=== PATIENT | female | born 2000 | race Caucasian/White ===

== ENCOUNTER 2022-02-02 12:51 | Outpatient (CLI) | payer BC, SELFPAY ==
--- NOTE | 2022-02-02 13:00 | CRLHL7_ITS ---
For Patients: As a result of the Century Cures Act, medical imaging exams and procedure reports are released immediately into your electronic medical record. You may view this report before your referring provider. If you have questions, please contact your health care provider. INDICATION: First trimester scan, establish dates. COMPARISON: None. TECHNIQUE: Real-time seals-scale imaging of the pelvis was performed. FINDINGS: Sonographic imaging demonstrates a single living intrauterine gestation. The embryo demonstrates a regular cardiac rate measuring 159 beats per minute. The embryo`s crown-rump length measurement of 1.4 cm corresponds to a gestational age of 7 weeks 5 days with a sonographic due date of 09/16/2022. There is a normal-appearing yolk sac. There are no gross abnormalities noted within the embryo at this early state of development. The gestational sac has a normal appearance. There is a 1.7 x 0.2 x 1.5 cm perigestational hemorrhage. The amount of fluid within the sac appears appropriate for gestational age. The cervix is closed. Incidental cyst noted in the decidual reaction measuring 7 x 5 x 5 millimeters. The ovaries are of normal size. Corpus luteal cyst left ovary measuring 1.9 x 1.5 x 1.9 cm. There are no suspicious fluid collections noted in the cul-de-sac. IMPRESSION: A single living intrauterine with sonographic gestational age 7 weeks 5 days and sonographic due date 09/16/2022. Inferior subchorionic hemorrhage measuring 1.7 x 0.2 x 1.5 cm. Dictated by Chencho Preciado MD @ 02/03/2022 9:23:44 AM (Electronically Signed)
== END 2022-02-02 12:52 | disposition home or self-care (01) ==
LOC: US 12:52
PROVIDERS: PCP Advanced Practice Midwife; Visit Provider Advanced Practice Midwife
DX: Z34.91 Encounter for supervision of normal pregnancy, unspecified, first trimester (principal); O20.9 Hemorrhage in early pregnancy, unspecified; Z3A.01 Less than 8 weeks gestation of pregnancy
CPT/HCPCS: 76801

== ENCOUNTER 2022-02-16 14:34 | Outpatient (CLI) | payer BC, SELFPAY ==
[2022-02-16 18:05] LABS: Hepatitis B Surface Antigen* Negative (Negative)
[2022-02-16 18:14] LABS: HIV 1/2/P24 Combo Screen* Negative (Negative)
[2022-02-16 18:21] LABS: Hepatitis C Virus Antibody* Negative (Negative)
[2022-02-18 17:16] LABS: Rapid Plasma Reagin (RPR) Non Reactive (Non Reactive)
[2022-02-18 20:41] LABS: Rubella Antibody IgG 30.5 IU/mL; Varicella-Zoster Virus Ab, IgG 802.9 IV
== END 2022-02-16 14:35 | disposition home or self-care (01) ==
PROVIDERS: PCP Advanced Practice Midwife; Visit Provider Advanced Practice Midwife
DX: Z34.80 Encounter for supervision of other normal pregnancy, unspecified trimester (principal)
CPT/HCPCS: 86592; 86703; 86762; 86787; 86803; 86850; 86900; 86901; 87086; 87340

== ENCOUNTER 2022-05-04 09:02 | Outpatient (CLI) | payer BC, SELFPAY ==
--- NOTE | 2022-05-04 09:15 | CRLHL7_ITS ---
For Patients: As a result of the Century Cures Act, medical imaging exams and procedure reports are released immediately into your electronic medical record. You may view this report before your referring provider. If you have questions, please contact your health care provider. INDICATION: Evaluate anatomy. COMPARISON: 02/02/2022 TECHNIQUE: Real time seals scale imaging of the fetus was performed as well as color Doppler analysis of the umbilical vessels. FINDINGS: Sonographic imaging demonstrates a single living intrauterine gestation. Fetus demonstrates a regular cardiac rate of 146 beats per minute. Fetus has a breech position. The placenta lies anteriorly without evidence of placenta previa. The edge of the placenta is located 4.1 cm from the internal cervical os. Amniotic fluid volume appears normal. Single deepest vertical pocket: 4.3 cm. The cervix is closed and measures 4.1 cm in length. The composite ultrasound gestational age is calculated at 20 weeks 5 days with an estimated sonographic due date of 09/16/2022. The estimated weight is 379 grams which lies at the 50th %. The following biometric measurements were obtained: Biparietal diameter: 4.7 cm/20 weeks 2 days 33rd% Head circumference: 18.0 cm/20 weeks 3 days 27th% Abdominal circumference: 15.9 cm/21 weeks 0 days 55th% Femur length: 3.4 cm/20 weeks 5 days 40th% The HC/AC ratio measures: 1.13 range (1.06-1.25) On anatomic survey, there is a normal appearance of the cerebral ventricles, cavum septi pellucidi, cisterna magna and cerebellum. The nose, lips, and facial profile appear normal. The cervical, thoracic and lumbar spine are well visualized and appear normal. There is a normal four-chamber heart view and the left and right ventricular outflow tracts appear normal. The diaphragm and stomach appear normal. The kidneys and bladder also appear normal. There is a normal three-vessel cord and cord insertion site. The four extremities appear normal. IMPRESSION: Normal OB ultrasound exam with concordance of clinical and sonographic dating. No intrinsic abnormalities noted on anatomic survey. Dictated by Chencho Preciado MD @ 05/04/2022 11:57:19 AM (Electronically Signed)
== END 2022-05-04 09:03 | disposition home or self-care (01) ==
LOC: US 09:03
PROVIDERS: Visit Provider Advanced Practice Midwife
DX: Z34.92 Encounter for supervision of normal pregnancy, unspecified, second trimester (principal); Z3A.20 20 weeks gestation of pregnancy
CPT/HCPCS: 76805

== ENCOUNTER 2022-06-29 09:08 | Outpatient (CLI) | payer BC, SELFPAY | END 2022-06-29 09:09 | disposition home or self-care (01) | LOC: NFLDREF 07-01 11:04 | PROVIDERS: Visit Provider Advanced Practice Midwife | DX: Z34.93 Encounter for supervision of normal pregnancy, unspecified, third trimester (principal) | CPT/HCPCS: 86592 ==

== ENCOUNTER 2022-09-07 17:55 | Outpatient (CLI) | payer BC, SELFPAY ==
[2022-09-07 18:17] VITALS: BP 124/82; PULSE 96; RESP 16; TEMP 37; O2SAT 98
[2022-09-07 18:18] VITALS: BP 124/82; PULSE 90; PULSE 96; O2SAT 98
[2022-09-07 18:53] LABS: Amnisure Rom* Negative
--- NOTE | 2022-09-07 20:55 | PC.OBNST ---
NST Note NST Note Start: 09/07/22 17:58 Freq: ONCE Status: Active Protocol: Document 09/07/22 20:54 FARHAN (Rec: 09/07/22 20:55 FARHAN [id number]) NST Note 3 Para (# of births) 1 EDC 09/16/22 Gestational Age In Weeks & Days 38 Weeks & 5 Days Patient Presented with Complaint(s) of Contractions/cramping,Leaking fluid Reactive Yes Appropriate for Gestational Age Yes ZOHAIB Hill RN Date 09/07/22 Reactive Yes Appropriate for Gestational Age Yes ZOHAIB Borden RN Date 09/07/22 OB NST charge Yes Complete NST Note via Write Note Yes The provider's electronic signature indicates the NST is reactive/appropriate for gestational age. *Note to provider: If an addendum is required, open the patient's chart and click on the note under the Nurse/Allied Health tab.
== END 2022-09-07 20:51 | disposition home or self-care (01) ==
LOC: OB OUT 17:55 → OB 17:56
PROVIDERS: Visit Provider Advanced Practice Midwife
DX: O47.1 False labor at or after 37 completed weeks of gestation (principal); Z3A.38 38 weeks gestation of pregnancy
CPT/HCPCS: 59025; 84112; 99213

== ENCOUNTER 2022-09-08 22:26 | Outpatient (CLI) | payer BC, SELFPAY ==
[2022-09-08 22:36] VITALS: BP 121/77; PULSE 76; PULSE 86; TEMP 36.9; O2SAT 99
--- NOTE | 2022-09-08 23:44 | PC.OBNST ---
NST Note NST Note Start: 09/08/22 22:27 Freq: ONCE Status: Active Protocol: Document 09/08/22 23:43 NICK (Rec: 09/08/22 23:44 NICK [id number]) NST Note 3 Para (# of births) 1 EDC 09/16/22 Gestational Age In Weeks & Days 38 Weeks & 6 Days Patient Presented with Complaint(s) of Contractions/cramping Reactive Yes Appropriate for Gestational Age Yes ZOHAIB Flores RN Date 09/08/22 Reactive Yes Appropriate for Gestational Age Yes ZOHAIB Oh RN Date 09/08/22 OB NST charge Yes Complete NST Note via Write Note Yes The provider's electronic signature indicates the NST is reactive/appropriate for gestational age. *Note to provider: If an addendum is required, open the patient's chart and click on the note under the Nurse/Allied Health tab.
== END 2022-09-08 23:49 | disposition home or self-care (01) ==
LOC: OB OUT 22:26 → OB 22:26
PROVIDERS: Visit Provider Advanced Practice Midwife
DX: O47.1 False labor at or after 37 completed weeks of gestation (principal); Z3A.38 38 weeks gestation of pregnancy
CPT/HCPCS: 59025; 99213

== ENCOUNTER 2022-09-23 06:01 | Inpatient (IN) | payer BC, SELFPAY ==
[2022-09-23] VITALS (19 sets, daily range): BP systolic 120–145; BP diastolic 61–87; PULSE 76–105; RESP 16–18; TEMP 36.7–37.1; O2SAT 98
[2022-09-23] MEDS: OXYTOCIN 10 UNIT/ML INJ IM (07:20)
--- NOTE | 2022-09-23 07:24 | W.PM.LDBA ---
Subjective History of Present Illness Narrative: Patient is being admitted to Labor and Delivery for active labor. She is a 22 year old at 41.0 weeks gestation. Her full history and physical was dictated by Macie Lucio CNM on 08/24/22. Please see this for details. She presented in active labor and requested to get in the tub shortly after. She progressed quickly to complete and pushed effectively. See delivery note for details. 1. Hx SAD and questionable depression. Feels that it is better now that she is working again. OB - Problem Based A/P Additional Plan (1) Pain during labor: Status: Acute (2) : Status: Acute Plan ASSESSMENT:? at 41.0 weeks gestation? GBS negative? Uncomplicated ? Active labor at 41.0 weeks ?? PLAN:? 1. Desires water . Consent signed. Hep C negative.? 2. Candidate for analgesia of choice. Planning unmedicated .? 3. Anticipate ? 4. IV only if condition changes per unit policy 5. Continuous monitoring until a reactive strip is obtained then per unit policy.? ? Delivery/Labor/Induction Plan Plan: expectant management OB Result Labs Blood Type: O (+) positive GBS Status: negative OB Exam Physical Exam Vital signs: Pulse BP 105 H 145/76 H 09/23/22 07:23 09/23/22 07:23 Narrative: Psychiatric:? Alert and oriented x3? HEENT:? Normocephalic, atraumatic? Neck:? Supple without adenopathy or thyromegaly? Lungs:? Clear to auscultation bilaterally? Heart:? Regular rate and rhythm, no murmur, rub or gallop? Abdomen:? Soft, nontender, and gravid? Extremities:? No edema or erythema? Detailed Labor and Delivery Exam Patient Gravid: Yes Dilation (cm): 7 (6-7 per RN exam) Contraction Frequency: 1-3 min Contraction intensity: Strong/Firm Fetus (Single) Amniotic Membrane Status: intact Heart Rate Baseline: 135 Monitor Accelerations: Present Monitor Decelerations: None Net Developer Software Engineer C Variability: Moderate (6-25)
[2022-09-23] MEDS: LIDOCAINE 1 % PF 30 ML INJECTION (07:30)
--- NOTE | 2022-09-23 07:48 | W.PM.VAGDE_ITS ---
Documented by User: Maribel Lucio CNM 09/23/22 12:41 OB Procedure Vag Delivery Mother Details Mother Details: Suzie is a 22 year-old, 3, now Para 2011, admitted on 09/23/22 at 41 0/7 weeks gestation for spontaneous onset of labor. She began having contractions about 3 am and continued to spontaneous labor. : 3 Para: 2 Weeks Gestation: 41 Admission Date: 09/23/22 Additional Details Amniotic Membrane Status: SROM Amniotic Membrane Rupture Date: 09/23/22 Amniotic Membrane Rupture Time: 06:59 Amniotic Membrane Fluid Description: Clear Analgesia/Anesthesia Type: None Waterbirth: Yes Pitcoin: Yes (AMTSL) Labor Onset: 03:30 Complete: 06:59 Pushin:59 Heart: heart tones during second stage were reassuring throughout the second stage, primarily Category I with increased difficulty in monitoring due to maternal position in the tub for the last 5 minutes before delivery. Delivery Details Delivery Date: 09/23/22 Delivery Time: 07:11 Route of delivery: (Delivered by NICKI Dotson; care assumed after by NICKI Hammer) Infant Gender: Female Infant Viability: Alive; Heart Rate Present Position at Delivery: OA Delivery Details: Patient was admitted for spontaneous onset of labor and progressed quickly and normally on her own. SROM noted at onset of pushing with clear fluid. Patient was assumed complete with pushing at 0659. of a viable female at 0711 in hands and knees in the tub by Beltran Hill CNM. Vertex delivered REBECCA. No nuchal cord or shoulder. Body delivered easily and without incident. passed to mothers abdomen with a vigorous cry. Cord was clamped and cut at > 5 minutes. AP GARS were 8 at one minute and 8 at five minutes respectively. Mouth was bulb suctioned. Care assumed by NICKI Hammer. Patient was assisted from the tub to the bed. Intact placenta with a 3 vessel cord delivered spontaneously at 0722. Fundus firm. 1st degree with left labial extension identified and repaired in typical fashion with local anesthetic, 10 cc of lidocaine injected at site of repair. QBL 400 cc (100 QBL and 300 EBL from tub). Mother and baby stable; mother plans to breastfeed. Infant weight 8lb 13oz. 1 Minute Interval Total Score: 8 5 Minute Interval Total Score: 8 Additional Details Shoulder Dystocia: No Placenta Delivery Time: 07:22 Placental Delivery Description: Spontaneous Delivery repair: Vicryl Procedure Done: Global Blood Loss: 400 Laceration: Perineal - 1st Degree (w/ L labial extension) Blood Loss Measurement Type: QBL (EBL 300 + 100 QBL) Bakri Used: No Sponge/Need Count Correct: Yes Cord Vessel Description: 3 Vessels Event Summary Status: Mother and infant were stable after delivery. Disposition: floor Documented by User: Claudia Hill CNM 09/24/22 08:49 OB Procedure Vag Delivery Additional Details Intrapartal Events: None Additional Details Episiotomy Description: None
[2022-09-23] MEDS: IBUPROFEN 600 MG TABLET PO ×2 (10:21→20:37)
[2022-09-24 00:38] VITALS: BP 125/60; PULSE 84; RESP 16; TEMP 37.2; O2SAT 97
[2022-09-24] MEDS: ACETAMINOPHEN 500 MG TABLET 1000 MG PO (00:41)
[2022-09-24 04:15] VITALS: BP 127/76; PULSE 81; RESP 16; TEMP 36.7
[2022-09-24 08:21] LABS: Hemoglobin* 9.3 gm/dL (12.0-16.0)
--- NOTE | 2022-09-24 08:35 | P.DS_ITS ---
DS: Providers Provider Date Seen: 09/24/22 Date of admission: 09/23/22 06:01 Primary care physician: Not a Local Provider Admitting Clinician: Claudia Hill CNM Attending Physician on discharge: Claudia Hill CNM Date of Discharge: 09/24/22 DS: Diagnosis Discharge Diagnosis (1) Anemia due to acute blood loss: Status: Acute (2) care following vaginal delivery: Status: Acute (3) Lactating mother: Status: Acute Exam Narrative: Exam Narrative: GENERAL APPEARANCE:? normal affect, alert, no distress? MOOD:? appropriate? CHEST:? clear to auscultation and percussion? HEART:? regular rate and rhythm? ABDOMEN:? soft, non-tender the uterine fundus is 2 cm Below Umbilicus, Midline and is appropriate for the stage of recovery. ? PERINEUM:? mild edema of the perineum, there is a 1st degree labial that is healing well.? EXTREMITIES:? normal and no edema? Patient has no complaints? No active bleeding?? Doing well? She is requesting discharge home.? Const: Vital Signs, click to edit/add: Vital Signs - 24 hr 09/23/22 08:38 09/23/22 08:40 09/23/22 08:53 Temperature Pulse Rate 79 77 Pulse Rate [Blood Pressure Cuff] 79 Respiratory Rate 18 Blood Pressure 120/67 133/75 Blood Pressure [Le ft Arm] 120/67 Pulse Oximetry Oxygen Delivery Me thod 09/23/22 08:55 09/23/22 09:08 09/23/22 09:10 Temperature 98.4 F Pulse Rate 76 Pulse Rate [Blood Pressure Cuff] 77 76 Respiratory Rate 18 18 Blood Pressure 120/61 Blood Pressure [Le ft Arm] 133/75 120/61 Pulse Oximetry Oxygen Delivery Me thod 09/23/22 12:35 09/23/22 17:20 09/23/22 20:30 Temperature 98.8 F 98.8 F 98.5 F Pulse Rate Pulse Rate [Blood Pressure Cuff] 76 80 76 Respiratory Rate 18 18 18 Blood Pressure Blood Pressure [Le ft Arm] 122/78 128/87 128/83 Pulse Oximetry 98 Oxygen Delivery Me thod Room Air Room Air Room Air 09/24/22 00:38 09/24/22 04:15 Temperature 98.9 F 98.1 F Pulse Rate Pulse Rate [Blood Pressure Cuff] 84 81 Respiratory Rate 16 16 Blood Pressure Blood Pressure [Le ft Arm] 125/60 127/76 Pulse Oximetry 97 Oxygen Delivery Me thod Room Air Room Air OB - DS: Summary Hospital Course Hospital Course: Patient is a 22year old, G 3 now P 2? admitted on 09/23/22 at 41 Weeks, 0?Days gestation for active labor.? She had an uncomplicated vaginal delivery.? She delivered a viable female infant.? She is breast feeding and reports things are well.?She states that she will likely pump exclusively. this is what she did with her previous child and feel more comfortable with pumping. the patient has done well.? Her pain is well controlled with current medications.? She has no new complaints.? Vitals have been stable. She has remained afebrile. She is voiding without difficulty. She is passing gas and has not had a bowel movement. She is ambulating and denies any dizziness. She is planning condoms and may consider the Caya for control.?HerPP hemoglobin is 9.3 so i will send a prescription for PO iron supplementation.?? Peripartum Data Infant delivery method: Vaginal Laceration description: Labial (1st degree left labial) Episiotomy description: None complications: none Sonoita Gender: Female Infant Discharge Plan: Home Status at Discharge Functional status at discharge: independent ambulation Overall status at discharge: patient is progressing back to baseline Time Spent with Patient Time attestation: Total time spent providing and/or coordinating discharge services: Discharge Plan Discharge Disposition: Home, Self-Care Date of Admission: 09/23/22 06:01 Attending Provider on Discharge: Claudia Hill Primary Care Provider: Provider,Not a Local Condition: Stable Anticipated Discharge Date/Time: 09/24/22 10:00 Discharge Medications: New docusate sodium 100 mg Capsule 100 mg PO DAILY Qty: 90 0RF Rx Instructions: Take 1-2 tablets daily as needed for constipation. ibuprofen 600 mg Tablet 600 mg PO Q6H PRNQty: 60 0RF ferrous sulfate 325 mg (65 mg iron) tablet 325 mg PO Q OTHER DAY Qty: 60 0RF Continued magnesium 250 mg tablet 250 mg PO QDAY prenat.vits,marc,hge-abkp-kecre Tablet 1 tab PO QDAY Discharge Orders: Discharge Order (Routine); Ordered 09/24/22 Ordered By: Claudia Hill Additional Instructions: Discharge instructions were reviewed with the patient including signs and symptoms of infection and home going medications.? Lifting Restrictions: 20 pounds for 6? weeks? ?? Do not drive while taking narcotic pain meds.? Off Work or School for 6 weeks.? ?? Symptoms to report to doctor:? -Bleeding that saturates more than one pad per hour? -Passing clots larger than the size of a golf ball? -Pain not relieved by prescribed medication? -Fever above 100.4 degrees Fahrenheit? -A foul vaginal odor? -Difficulty in emotions, mood and functions? -Thoughts of hurting yourself and/or ? -Painful, reddened area in your breast? -Any drainage, redness or tenderness in your IV/epidural site? -Severe headache that doesn't improve after taking medications? -Changes in vision, including temporary loss of vision, blurred vision, and/or light sensitivity? -Upper abdominal pain (usually under ribs on the right side)? -Decrease in urination or painful, frequent urinating? -Chest pain? -Shortness of breath? -Tenderness or pain with redness and/swelling in the calf(s) of your leg? ?? Follow Up in clinic in 2 and 6 weeks.? ?? consultation services are available to all mothers and babies for the first year after delivery.? To make an appointment, please call [phone].? Activity Level: Activity as Tolerated Discharge Diet: Regular Follow Up Appointments: Provider,Not a Local [Primary Care Provider] - [facility] [Provider Group] Forms: [employer] Info Instructions
[2022-09-24 10:00] VITALS: BP 117/73; PULSE 80; RESP 18; TEMP 36.8
== END 2022-09-24 11:30 | disposition home or self-care (01) | DRG 560 ==
LOC: OB OUT 09-26 09:54 → OB 09-26 09:55
PROVIDERS: Advanced Practice Midwife; Admitting Provider Advanced Practice Midwife; Visit Provider Advanced Practice Midwife
DX: O48.0 Post-term pregnancy (principal); O70.0 First degree perineal laceration during delivery; O90.81 Anemia of the puerperium; D62 Acute posthemorrhagic anemia; Z3A.41 41 weeks gestation of pregnancy; Z37.0 Single live birth
CPT/HCPCS: 36415; 85018; 99213; A9270; J2001; J2590

== ENCOUNTER 2023-02-06 13:00 | Outpatient (RCR) | payer BC, SELFPAY | END 2023-06-06 23:59 | disposition home or self-care (01) | PROVIDERS: Visit Provider Advanced Practice Midwife | DX: N81.89 Other female genital prolapse (principal); M53.3 Sacrococcygeal disorders, not elsewhere classified; M62.81 Muscle weakness (generalized); Z51.89 Encounter for other specified aftercare | CPT/HCPCS: 97110; 97140; 97162 ==

== ENCOUNTER 2024-03-08 11:53 | Outpatient (CLI) | payer BC, SELFPAY ==
--- NOTE | 2024-03-08 12:15 | CRLHL7_ITS ---
For Patients: As a result of the Century Cures Act, medical imaging exams and procedure reports are released immediately into your electronic medical record. You may view this report before your referring provider. If you have questions, please contact your health care provider. INDICATION: Dating and viability COMPARISON: None. TECHNIQUE: Real-time seals-scale imaging of the pelvis was performed. FINDINGS/IMPRESSION: Vertex position. Placenta anterior. Single deepest pocket 4.3 cm. heart rate 150 beats per minute. Cervix closed measuring 5.0 cm. BPD 3.1 cm, 15 weeks 6 days, 59th percentile. HC 11.4 cm, 15 weeks 4 days, 34th percentile. HC 9.8 cm, 15 weeks 6 days, 63rd percentile. FL 1.6 cm, 14 weeks 5 days, 14th percentile. Sonographic gestational age 15 weeks 4 days and sonographic due date of 08/26/2024. Estimated weight 121 grams, 24th percentile. HC/AC ratio 1.17 (1.06-1.36). Dictated by Chencho Preciado MD @ 03/10/2024 6:09:06 PM (Electronically Signed)
== END 2024-03-08 11:54 | disposition home or self-care (01) ==
LOC: US 11:54
PROVIDERS: Visit Provider Registered Nurse
DX: Z34.92 Encounter for supervision of normal pregnancy, unspecified, second trimester (principal); Z3A.15 15 weeks gestation of pregnancy
CPT/HCPCS: 76815

== ENCOUNTER 2024-03-08 13:04 | Outpatient (CLI) | payer BC, SELFPAY | END 2024-03-08 13:05 | disposition home or self-care (01) | PROVIDERS: PCP Registered Nurse; Visit Provider Registered Nurse | DX: Z34.92 Encounter for supervision of normal pregnancy, unspecified, second trimester (principal); Z3A.15 15 weeks gestation of pregnancy | CPT/HCPCS: 83021; 86592; 86703; 86704; 86706; 86762; 86787; 86803; 86850; 86900; 86901; 87086; 87340 ==

== ENCOUNTER 2024-05-21 14:02 | Outpatient (CLI) | payer BC, SELFPAY ==
--- NOTE | 2024-05-21 14:00 | CRLHL7_ITS ---
For Patients: As a result of the Century Cures Act, medical imaging exams and procedure reports are released immediately into your electronic medical record. You may view this report before your referring provider. If you have questions, please contact your health care provider. INDICATION: survey TECHNIQUE: Conventional transabdominal two-dimensional grayscale ultrasound examination COMPARISON: 03/08/2024 FINDINGS: There is a living fetus with gestational age of 26 weeks 1 day by LMP and 26 weeks by today`s measurements. EDC based on LMP is 08/26/2024. BPD: 6.1 cm, 24 weeks 5 days Head circumference: 23.8 cm, 25 weeks 6 days Abdominal circumference: 21.7 cm, 26 weeks 1 day Femur length: 4.6 cm, 25 weeks 2 days HC/AC: 1.10 The weight is estimated at 848 grams, the 24th percentile. The heart rate is measured at 159 beats per minute and the rhythm appears regular. The head and spine are grossly intact. No gross facial abnormality is evident. The upper lip is intact. Four cardiac chambers are demonstrated. The heart and stomach appear to be on the same side. The diaphragm is intact. Right abdominal cystic structure which could represent gallbladder a dilated ureter. Two kidneys and a bladder are demonstrated. The cord insertion is normal and three cord vessels are noted. Four extremities are demonstrated. The amniotic fluid volume is within normal limits. The placenta is anterior with no evidence of previa. The cervical length is normal at 4.7 cm. IMPRESSION: 1. Living fetus with gestational age of 26 weeks 1 day by LMP and 26 weeks by today`s measurements. EDC based on LMP is 08/26/2024. 2. No anomaly evident. Right abdominal cystic structure which could represent the gallbladder origin enlarged ureter. Limited follow up recommended. Dictated by Calderon Shirley MD @ 05/22/2024 8:49:43 AM (Electronically Signed)
== END 2024-05-21 14:03 | disposition home or self-care (01) ==
LOC: US 14:02
PROVIDERS: Visit Provider Registered Nurse
DX: Z34.92 Encounter for supervision of normal pregnancy, unspecified, second trimester (principal); Z3A.26 26 weeks gestation of pregnancy
CPT/HCPCS: 76805

== ENCOUNTER 2024-06-04 12:55 | Outpatient (CLI) | payer BC, SELFPAY ==
--- NOTE | 2024-06-04 13:00 | CRLHL7_ITS ---
For Patients: As a result of the Century Cures Act, medical imaging exams and procedure reports are released immediately into your electronic medical record. You may view this report before your referring provider. If you have questions, please contact your health care provider. INDICATION: F/U cystic structure in the abdomen visualized at survey done in week 26. COMPARISON: 05/21/2024 TECHNIQUE: Real time seals scale imaging of the fetus was performed as well as color Doppler analysis of the umbilical vessels. FINDINGS: Sonographic imaging demonstrates a single living intrauterine gestation. Fetus demonstrates a regular cardiac rate of 145 beats per minute. Fetus has a vertex position. The placenta lies anterior. Amniotic fluid volume appears normal. Single deepest vertical pocket: 6.0 cm. Normal kidneys, stomach, bladder, diaphragm and cord insertion. Cystic structure within the abdomen is again noted without color Doppler flow, likely representing a normal structures such as the gallbladder. IMPRESSION: Similar cystic structure within the abdomen, likely normal. MFM consultation recommended. Dictated by Chencho Preciado MD @ 06/05/2024 7:00:09 AM (Electronically Signed)
== END 2024-06-04 12:56 | disposition home or self-care (01) ==
LOC: US 12:55
PROVIDERS: Visit Provider Advanced Practice Midwife
DX: O28.3 Abnormal ultrasonic finding on antenatal screening of mother (principal); O34.83 Maternal care for other abnormalities of pelvic organs, third trimester; N94.89 Other specified conditions associated with female genital organs and menstrual cycle; Z3A.28 28 weeks gestation of pregnancy
CPT/HCPCS: 76816; 86592

== ENCOUNTER 2024-07-10 10:42 | Outpatient (CLI) | payer BC, SELFPAY | END 2024-07-10 10:43 | disposition home or self-care (01) | LOC: US 10:42 | PROVIDERS: Visit Provider Midwife | DX: O28.3 Abnormal ultrasonic finding on antenatal screening of mother (principal); Z3A.33 33 weeks gestation of pregnancy | CPT/HCPCS: 76811 ==

== ENCOUNTER 2024-07-24 15:05 | Outpatient (CLI) | payer BC, SELFPAY | END 2024-07-24 15:06 | disposition home or self-care (01) | LOC: US 15:05 | PROVIDERS: Visit Provider Advanced Practice Midwife | DX: O28.3 Abnormal ultrasonic finding on antenatal screening of mother (principal); O35.06X0 Maternal care for (suspected) central nervous system malformation or damage in fetus, hydrocephaly, not applicable or unspecified; Z3A.35 35 weeks gestation of pregnancy | CPT/HCPCS: 76816 ==

== ENCOUNTER 2024-08-09 12:04 | Outpatient (CLI) | payer BC, SELFPAY | END 2024-08-09 12:05 | disposition home or self-care (01) | LOC: NFLDREF 08-20 07:19 | PROVIDERS: Visit Provider Advanced Practice Midwife | DX: Z34.93 Encounter for supervision of normal pregnancy, unspecified, third trimester (principal); O32.1XX0 Maternal care for breech presentation, not applicable or unspecified; Z3A.37 37 weeks gestation of pregnancy | CPT/HCPCS: 87081; 87653 ==

== ENCOUNTER 2024-08-09 13:00 | Outpatient (RCR) | payer BC, SELFPAY ==
--- NOTE | 2024-07-12 14:50 | PT.OPEX ---
PT [place] Outpatient Eval PT [facility] Outpatient Eval Start: 07/12/24 12:54 Freq: Status: Active Protocol: Document 07/12/24 14:49 MARLO (Rec: 07/12/24 14:50 MARLO [id number]) E-signed By Pricila Carter, PT Physical Therapy Outpatient Evaluation Insurance Information Recert Due Date 10/10/24 Insurance Name Medicaid,Blue Cross/[employer] Medical Diagnosis Pelvic floor instability Treating Diagnosis Muscle weakness Referring Darrell Marquez Preferred Name Suzie Leon She has 2 children ages: 2 and 4. Pain with running and intimacy. Pain feels deep inside. Has limited ability to lift/hold kiddos. Feels a lot of pressure in the back of the pubic bone. She has waited to do much exercise until seeing PT. 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 Chiropractic PRN Pain Comments asymmetrical loading like pushing in a chair hurts, running short distances, deep discomfort with intimacy. 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) Precautions Treatment Precautions/Contraindications [facility] 08/26/24 prefers no internal, but consents if needed Therapy Limitations/Systems Review Not Limited Objective Other/Pertinent Objective Pelvic Floor Assessment: Bladder hx: voids 4x/day and poor hydration Bowel Hx: intermittent constipation Pelvic hx: some pain c penetrative sex / hx: 2 vaginal births, uncomplicated Breathing: good Pressure management: fair [place]: mild lengthening Posture Assessment: APT mild TA strength: Good LUMBAR ROM Flexion: WNL Extension: WNL Right Sidebend: no pain Left Sidebend: no pain LE MMT Hip flexion: R 5/5 L 5/5 Hip Extension: R 4-/5 L 4-/5 Hip abduction: R 4/5 L 4/5 knee extension: R 5/5 L 5/5 Knee Flexion: R 5/5 L 5/5 Hip ER: 4-/5 B, pain Hip IR limited ROM but painfree resistance JOINT MOBILITY/PALPATION SPECIAL TESTS Straight leg raise: + Crossed straight leg raise: + Slump test: - Quadrant test: - SI/HIP tests BENI + FADIR + SCOUR - Gillet Test: + Standing forward bend Test: - Gapping and Compression test: - Assessment Assessment/Impression Pt is a 24 yr old female c PGP in . Hip IR are limited in ROM c pain provoked in 90/90 ROM, and ER strength limited. She has tenderness in deep pelvic floor with penetration and impaired comfort with unilateral stance . SIJ and pelvic stability appear congruent c sx. Manual therapy indicated to restore mobility in tightened structures and strength and stability to assist in balancing pelvic stability. Primary Functional Limitations floor to standing transfers, unilateral stance, penetrative intercourse, running, Plan of Care Rehabilitation Potential Good Physical Therapy Goals Pt will be indep c HEP in 8 weeks to maintain gains made in PT. Pt will demonstrate no pain c unilateral stance for caregiving tasks in 7 weeks. Pt will report ability to climb stairs c 20# for laundry tasks in 6 weeks s pain increase of 2/10 or greater. Treatment Plan/Direct Interventions Biofeedback,Gait Training, Manual Therapy,Neuromuscular Re-ed,Orthotics/Braces,Self- Care/Home Management, Therapeutic Activities, Therapeutic Exercises Frequency/Duration weekly x12 weeks Patient Will Be Discharged From Therapy Completion of LTG(s),Skills Plateau,Independent w/HEP, Independently Progressing Evaluation Billing Untimed Code Treatment Minutes 45 PT Eval No Charge No Complexity Low Certification Information Initial Certification Date 07/12/24 Ending Certification Date 10/10/24 Provider Signature Required Yes Provider Signature Shows Agreement With POC & Medical Necessity Physician NPI Number Write NPI# Here Physician Comment/Change : Physician Signature & Date Requested Please Sign/Date Here
== END 2024-12-07 23:59 | disposition home or self-care (01) ==
PROVIDERS: Visit Provider Midwife
DX: Z51.89 Encounter for other specified aftercare (principal); M62.89 Other specified disorders of muscle; Z34.90 Encounter for supervision of normal pregnancy, unspecified, unspecified trimester
CPT/HCPCS: 97140; 97161; 97535

== ENCOUNTER 2024-08-26 14:53 | Outpatient (CLI) | payer BC, SELFPAY ==
[2024-08-26 14:58] VITALS: PULSE 98; O2SAT 100
[2024-08-26 15:03] VITALS: PULSE 107; O2SAT 98
[2024-08-26 15:25] VITALS: BP 121/67; PULSE 90; RESP 16; TEMP 36.8
--- NOTE | 2024-08-26 16:07 | PC.OBNST ---
NST Note NST Note Start: 08/26/24 16:05 Freq: Status: Active Protocol: Document 08/26/24 16:06 [facility] (Rec: 08/26/24 16:07 [facility] [id number]) NST Note 4 Para (# of births) 2 EDC 08/26/24 Gestational Age In 40 Weeks & 0 Days Weeks & Days Patient Presented Contractions/cramping with Complaint(s) of Reactive Yes Appropriate for Yes Gestational Age ZOHAIB Padilla RN Date 08/26/24 Reactive Yes Appropriate for Yes Gestational Age ZOHAIB Garcia RN Date 08/26/24 OB NST charge Yes Complete NST Note Yes via Write Note The provider's electronic signature indicates the NST is reactive/appropriate for gestational age. *Note to provider: If an addendum is required, open the patient's chart and click on the note under the Nurse/Allied Health tab.
== END 2024-08-26 15:34 | disposition home or self-care (01) ==
LOC: OB OUT 14:53 → OB 14:54
PROVIDERS: Visit Provider Advanced Practice Midwife
DX: O47.1 False labor at or after 37 completed weeks of gestation (principal); Z3A.40 40 weeks gestation of pregnancy
CPT/HCPCS: 59025; G0463

== ENCOUNTER 2024-08-27 23:17 | Outpatient (CLI) | payer BC, SELFPAY ==
--- NOTE | 2024-08-27 23:23 | P.LDBA_ITS ---
Subjective History of Present Illness Narrative: Patient is being admitted to Labor and Delivery for active labor with contractions every 3 minutes that started strongly at 2200. She is a 24 year old at 40 0/7 weeks gestation. Her full history and physical was dictated by Jan Lucio on 08/09/2024. Please see this for details. 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 Follow-up US with MFM, If ventriculomegaly is present, especially if progressive, recommend delivery at [facility] with Neurosurgery consultation. Level II MFM scheduled at [place] on 07/25/2023. Interval resolution of ventriculomegaly. Delivery at [facility] ok. recommendation is a head US in the period prior to d/c home from [facility], please notify peds of recommendation on arrival. Suzie will plan for outpatient MRI at [facility] with pediatric neurosurgery 1-2 weeks after , she will call them to set up after delivery. (See MFM note from 08/09) Unable to do head US in [facility]. Consulted with M again who is ok with US being after discharge if she wants to delivery in [facility]. Informed pt of limitations and risks and she would like to continue with delivery here. # Late entry to care with gap between 15-26 weeks # History of macrosomia. Second baby was 8 lb 13 oz at 41 weeks. # Cystic area at level of kidneys on anatomy scan at 26 weeks. Confirmed 06/04/24. MFM: not concerning # Pelvic floor instability-PT referral sent 06/04/2024 # Breech presentation - Resolved as of 08/13/24. Consider bedside US on admit. Declines ECV at 37 week, open to schedule after the weekend; message sent to schedule 08/09 Anatomy scan: 05/21/2024: IMPRESSION: 1. Living fetus with gestational age of 26 weeks 1 day by LMP and 26 weeks by today`s measurements. EDC based on LMP is 08/26/2024. 2. No anomaly evident. Right abdominal cystic structure which could represent the gallbladder origin enlarged ureter. Limited follow up recommended. Follow up US: 06/04/2024 IMPRESSION: Similar cystic structure within the abdomen, likely normal. MFM consultation recommended. 07/10/2024-Impression: 1. Hanna intrauterine at 33 w 2d gestational age.2. An anechoic cystic area is noted near the CSP (lateral and posterior to the CSP and medial to the lateral ventricle). Otherwise, none of the anomalies commonly detected by ultrasound were evident in the detailed anatomic survey described above. 3. Growth parameters and estimated weight were consistent with appropriate for gestational age pattern of growth.4. The amniotic fluid volume appeared normal. Recommendation: Recommend MRI at [facility] in the next 1-2 weeks to further evaluate this finding and next steps will be guided by the results of the MRI. 07/24/2024: Impression: 1. Hanna intrauterine at 35w 2d gestational age. 2. An anechoic cystic structure is again noted at the medial aspect of the left lateral ventricle with unilateral moderate left ventriculomegaly noted today. The right lateral ventricle appears within normal limits. 3. The amniotic fluid volume appeared normal. Recommend increasing surveillance to weekly BPP and weekly evaluation of lateral ventricle dilation. Additionally, recommend transfer of care for delivery at [facility] in order to faciliate post- cares and follow up with Pediatric Neurosurgery. 07/30/2024: Follow-up US with [facility]. Anechoic cyst again noted n left ventricle measuring 11.5x7.5x7.2 mm. Left ventricle measures within normal today. EFW 49%ile. Amniotic fluid is normal. Interval resolution of previously noted cerebral ventriculomegaly. Care can return to [place] for delivery. Return in 2 weeks for re-evaluate lateral ventricle. If no progression then can remain at [facility]. 08/09/2024: Follow up US with [facility]: MRI consistent with previous US findings. Mild ventriculomegaly with anterior cyst measuring [id number] mm. Delivery planned for [facility]. Same recommendations as previous. Fetus is breech today. Vaccinations: Flu: Recommended. Declined. Covid: Not vaccinated. Recommended. Declined. Tdap: [] RSV: [] 32 week mental health: [] Hep B non-immune: Last pap: 11/2022 NIL OB - Problem Based A/P Additional Plan (1) Pain during labor: Status: Acute (2) Supervision of other normal : Status: Acute Plan ASSESSMENT:?? 24 at 40 0/7 weeks gestation?? complicated by:??late entry to care with gap 15-26w, US ab normality, pelvic floor instability Labor type:Spontaneous, early/active labor?? Category 1 FHR pattern.??? Labor complicated by: uncomplicated?? GBS negative ?? PLAN:?? 1. Routine intrapartum cares as ordered. Continue with expectant management. Will see if things continue to increase in strength?over the next couple of hours. There is potential she may desire to go home if still in the early sta ges. Declined membrane sweep at this time. 2. Monitoring per policy, intermittent?? 3. Planning unmedicated . Desires water . Consent signed. Hep C negative. Candidate for analgesia of choice.??? 4. Patient encouraged to reposition and ambulate to promote physiologic labor and .?? 5. Peds notified of patient arrival, but they verified they do not need to be present for delivery-Per Laurence Monroe MD 6. Anticipate ? OB Result Labs Blood Type: O (+) positive Rubella: immune RPR/VDLR: nonreactive GBS Status: negative HBsAG: negative OB Exam Physical Exam Narrative: Vitals Reviewed Constitutional:? Alert and oriented x3 HEENT:? Normocephalic, atraumatic Neck:? Supple Lungs:? Clear to auscultation bilaterally Heart:? Regular rate and rhythm, no murmur, rub or gallop Abdomen:? Soft, nontender, and gravid. Vertex by Sherwin's, confirmed with cervical exam. Extremities:? No edema or erythema Cervix: 3 cm/30%/-2 station/vertex with palpable sutures/bbow NST: 120 bpm/moderate variability/accelerations present/decelerations absent/contractions q 2-3 min
[2024-08-27 23:38] VITALS: BP 130/76; PULSE 70; RESP 16; TEMP 36.9
[2024-08-28 00:09] VITALS: BMI 26.5
[2024-08-28 02:50] VITALS: BP 106/54; PULSE 77; RESP 18; TEMP 36.9
--- NOTE | 2024-08-28 05:19 | PM.OBPNL ---
Subjective Date Seen: 08/28/24 Narrative: Suzie is a 24 yo 40w2d here for labor. She states she has continued to contract and they have increased in intensity. She was rating them a 3/10. She admits she has been able to sleep a little bit. Two hours after arrival, there was some cervical change to 3.5/50/-2. I had her consider going homat that time and she was not interested. She had a two hour labor last time and did not feel comfortable leaving. Her mom and are here with her. Good movement. No LOF. Objective Exam: Objective: Constitutional: Alert and oriented x3, no distress, coping well Vital signs stable, see nurse documentation Abdomen: gravid, contractions palpate mild with contractions and soft between Cervix: 3.5 cm/50%/-2 station/vertex with palpable sutures NST: Per intermittent FHTS, category 1 with 120s baseline, audible increases present, audible decreases absent Vital Signs: Last Vital Signs Temp 98.4 F 08/28/24 02:50 Pulse 77 08/28/24 02:50 Resp 18 08/28/24 02:50 BP 106/54 L 08/28/24 02:50 Plan Plan: ASSESSMENT:?? 24 at 40 2/7 weeks gestation?? complicated by:??late entry to care with gap 15-26w, US abnormality, pelvic floor instability Labor type:Spontaneous, early labor?? Category 1 FHR pattern.??? Labor complicated by: uncomplicated?? GBS negative ?? PLAN:?? 1. Encouraged patient to go home since she is not yet active. 2. Pt to return with an increase in frequency or intensity 3. She agrees with plan and has no further questions at this time.
--- NOTE | 2024-08-28 05:52 | PC.OBNST ---
NST Note NST Note Start: 08/27/24 23:22 Freq: ONCE Status: Active Protocol: Document 08/28/24 05:51 [facility] (Rec: 08/28/24 05:51 [facility] [id number]) NST Note 4 Para (# of births) 2 EDC 08/26/24 Gestational Age In 40 Weeks & 2 Days Weeks & Days Patient Presented Contractions/cramping with Complaint(s) of Reactive Yes RN Lui Sinclair, ZOHAIB Date 08/28/24 Reactive Yes RN Brittany Reid RN Date 08/28/24 OB NST charge Yes Complete NST Note Yes via Write Note The provider's electronic signature indicates the NST is reactive/appropriate for gestational age. *Note to provider: If an addendum is required, open the patient's chart and click on the note under the Nurse/Allied Health tab.
== END 2024-08-28 05:43 | disposition home or self-care (01) ==
LOC: OB OUT 23:17 → OB 23:17
PROVIDERS: Visit Provider Midwife
DX: O47.1 False labor at or after 37 completed weeks of gestation (principal); Z3A.40 40 weeks gestation of pregnancy
CPT/HCPCS: 59025; 86592; G0463

== ENCOUNTER 2024-08-29 16:36 | Outpatient (CLI) | payer BC, SELFPAY ==
[2024-08-29 16:46] VITALS: PULSE 96; O2SAT 100
[2024-08-29 16:51] VITALS: PULSE 85; O2SAT 98
[2024-08-29 16:56] VITALS: PULSE 90; O2SAT 98
[2024-08-29 16:58] VITALS: BP 129/88; PULSE 89
[2024-08-29 17:10] VITALS: RESP 16; TEMP 36.7
--- NOTE | 2024-08-29 21:12 | PC.OBNST ---
NST Note NST Note Start: 08/29/24 16:49 Freq: ONCE Status: Active Protocol: Document 08/29/24 21:09 [facility] (Rec: 08/29/24 21:12 RRP [id number]) NST Note 4 Para (# of births) 2 EDC 08/26/24 Gestational Age In 40 Weeks & 3 Days Weeks & Days Patient Presented Contractions/cramping with Complaint(s) of Reactive Yes Appropriate for Yes Gestational Age ZOHAIB Curiel RN Date 08/29/24 Reactive Yes Appropriate for Yes Gestational Age ZOHAIB Oh RN Date 08/29/24 OB NST charge Yes Complete NST Note Yes via Write Note The provider's electronic signature indicates the NST is reactive/appropriate for gestational age. *Note to provider: If an addendum is required, open the patient's chart and click on the note under the Nurse/Allied Health tab.
== END 2024-08-29 21:09 | disposition home or self-care (01) ==
LOC: OB OUT 16:38 → OB 16:39
PROVIDERS: Visit Provider Advanced Practice Midwife
DX: O47.1 False labor at or after 37 completed weeks of gestation (principal); Z3A.40 40 weeks gestation of pregnancy
CPT/HCPCS: 59025; G0463

== ENCOUNTER 2024-09-03 11:02 | Outpatient (CLI) | payer BC, SELFPAY ==
--- NOTE | 2024-09-03 11:15 | CRLHL7_ITS ---
For Patients: As a result of the Century Cures Act, medical imaging exams and procedure reports are released immediately into your electronic medical record. You may view this report before your referring provider. If you have questions, please contact your health care provider. INDICATION: Post dates TECHNIQUE: Ultrasound OB pelvis transabdominal. Real-time seals-scale imaging of the fetus was performed with color Doppler and spectral Doppler analysis of the umbilical artery without stress testing. COMPARISON: 08/09/2024 FINDINGS: Sonographic imaging demonstrates a single living intrauterine gestation. Fetus demonstrates a regular cardiac rate of 117 beats per minute. Fetus has a cephalic orientation. The placenta lies anterior. Amniotic fluid volume appears normal with a MVP of 4.4 cm. breathing movements, motion, and tone were all observed. IMPRESSION: Single viable intrauterine with a biophysical profile 11/08. Dictated by Filiberto Plata MD @ 09/03/2024 2:00:47 PM (Electronically Signed)
== END 2024-09-03 11:03 | disposition home or self-care (01) ==
PROVIDERS: Visit Provider Advanced Practice Midwife
DX: O48.0 Post-term pregnancy (principal)
CPT/HCPCS: 76819

== ENCOUNTER 2024-09-03 17:00 | Inpatient (IN) | payer BC, SELFPAY ==
[2024-09-03] VITALS (15 sets, daily range): BP systolic 118–141; BP diastolic 62–88; PULSE 76–110; RESP 16–18; TEMP 36.8–37.1; O2SAT 100
--- NOTE | 2024-09-03 16:05 | P.LDBA_ITS ---
Subjective History of Present Illness Time Seen by Provider: 15:45 Date Seen: 09/03/24 Narrative: Suzie is a 24 yo at 41 1/7 weeks gestation being admitted to Labor and Delivery for spontaneous onset of labor. She was seen earlier today in clinic and had a membrane sweep during her clinic visit. She was 4-5 cm in clinic, very stretchy. She reports contractions started around 12 after she left clinic. The slowly have become more progressive but she is able to talk and breath through them. She denies any leaking of fluid or bleeding. She is supported in labor by her , Ton, and her mom, Karen. Her full history and physical was dictated by NICKI Hammer on 08/09/2024. Please see this for details. She had an US today for post-dates BPP, 11/08 with vertex presentation. 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 Follow-up US with MFM, If ventriculomegaly is present, especially if progressive, recommend delivery at [facility] with Neurosurgery consultation. Level II MFM scheduled at [place] on 07/25/2023. Interval resolution of ventriculomegaly. Delivery at [facility] ok. recommendation is a head US in the period prior to d/c home from [facility], please notify peds of recommendation on arrival. Suzie will plan for outpatient MRI at [facility] with pediatric neurosurgery 1-2 weeks after , she will call them to set up after delivery. (See MFM note from 08/09) Unable to do head US in [facility]. Consulted with MFM again who is ok with US being after discharge if she wants to delivery in [facility]. Informed pt of limitations and risks and she would like to continue with delivery here. # Late entry to care with gap between 15-26 weeks # History of macrosomia. Second baby was 8 lb 13 oz at 41 weeks. # Cystic area at level of kidneys on anatomy scan at 26 weeks. Confirmed 06/04/24. MFM: not concerning # Pelvic floor instability-PT referral sent 06/04/2024 # Breech presentation - Resolved as of 08/13/24. Consider bedside US on admit. Declines ECV at 37 week, open to schedule after the weekend; message sent to schedule 08/09 Anatomy scan: 05/21/2024: IMPRESSION: 1. Living fetus with gestational age of 26 weeks 1 day by LMP and 26 weeks by today`s measurements. EDC based on LMP is 08/26/2024. 2. No anomaly evident. Right abdominal cystic structure which could represent the gallbladder origin enlarged ureter. Limited follow up recommended. Follow up US: 06/04/2024 IMPRESSION: Similar cystic structure within the abdomen, likely normal. MFM consultation recommended. 07/10/2024-Impression: 1. Hanna intrauterine at 33 w 2d gestational age.2. An anechoic cystic area is noted near the CSP (lateral and posterior to the CSP and medial to the lateral ventricle). Otherwise, none of the anomalies commonly detected by ultrasound were evident in the detailed anatomic survey described above. 3. Growth parameters and estimated weight were consistent with appropriate for gestational age pattern of growth.4. The amniotic fluid volume appeared normal. Recommendation: Recommend MRI at [facility] in the next 1-2 weeks to further evaluate this finding and next steps will be guided by the results of the MRI. 07/24/2024: Impression: 1. Hanna intrauterine at 35w 2d gestational age. 2. An anechoic cystic structure is again noted at the medial aspect of the left lateral ventricle with unilateral moderate left ventriculomegaly noted today. The right lateral ventricle appears within normal limits. 3. The amniotic fluid volume appeared normal. Recommend increasing surveillance to weekly BPP and weekly evaluation of lateral ventricle dilation. Additionally, recommend transfer of care for delivery at [facility] in order to faciliate post-benson cares and follow up with Pediatric Neurosurgery. 07/30/2024: Follow-up US with [facility]: [facility]. Anechoic cyst again noted n left ventricle measuring 11.5x7.5x7.2 mm. Left ventricle measures within normal today. EFW 49%ile. Amniotic fluid is normal. Interval resolution of previously noted cerebral ventriculomegaly. Care can return to [place] for delivery. Return in 2 weeks for re-evaluate lateral ventricle. If no progression then can remain at [facility]. 08/09/2024: Follow up US with [facility]: MRI consistent with previous US findings. Mild ventriculomegaly with anterior cyst measuring 66a01i4 mm. Alek art planned for [facility]. Same recommendations as previous. Fetus is breech today. Vaccinations: Flu: Recommended. Declined. Covid: Not vaccinated. Recommended. Declined. Tdap: declined RSV: not in season Hep B non-immune: Last pap: 11/2022 NIL OB - Problem Based A/P Additional Plan (1) Pain during labor: Status: Acute (2) 41 weeks gestation of : Status: Acute (3) Spontaneous onset of labor: Status: Acute (4) Ventriculomegaly of brain on ultrasound: Problem details: Mild, follow-up planned post-delivery recommendation is a head US in the period prior to d/c home from [facility], please notify peds of recommendation on arrival. Suzie will plan for outpatient MRI at [facility] with pediatric neurosurgery 1-2 weeks after , she will call them to set up after delivery. (See MFM note from 08/09) Status: Acute (5) Late care: Status: Acute Plan ASSESSMENT:? 24 yo at 41.1 weeks gestation? complicated by:?Anechoic area of brain with mild asymmetric left lateral ventriculomegaly, stable; late entry to care with gap between 15-26 weeks; hx of macrosomia; cystic area on kidneys MFM not concerned; pelvic floor instability; breech presentation resolved (confirmed vertex by US with BPP today) Labor type: Spontaneous, Active labor? Category 1 FHR pattern.?? Labor complicated by: Post-dates? GBS negative? ? PLAN:? 1. Routine intrapartum cares as ordered. Continue with expectant management? 2. Monitoring per policy, intermittent? 3. Planning unmedicated . Desires water . Consent signed. Hep C negative. Candidate for analgesia of choice.?? 4. Patient encouraged to reposition and ambulate to promote physiologic labor and .? 5. Anticipate ? Delivery/Labor/Induction Plan Plan: expectant management OB Exam Physical Exam Vital signs: Pulse BP Pulse Ox 85 130/81 100 09/03/24 16:04 09/03/24 16:04 09/03/24 15:45 Narrative: Vitals Reviewed Constitutional:? Alert and oriented x3 HEENT:? Normocephalic, atraumatic Neck:? Supple Lungs:? Clear to auscultation bilaterally Heart:? Regular rate and rhythm, no murmur, rub or gallop Abdomen:? Soft, nontender, and gravid. Vertex by Sherwin's, confirmed with ce rvical exam. Extremities:? No edema or erythema Cervix: 6 cm/90%/+1 station/vertex NST: 130 bpm/moderate variability/15x15 accelerations/no decelerations/contractions every 2-3 minutes Detailed Labor and Delivery Exam Patient Gravid: yes Contraction intensity: Moderate
[2024-09-03] MEDS: IBUPROFEN 600 MG TABLET PO (18:59)
--- NOTE | 2024-09-03 19:03 | W.PM.OBVAGDE ---
OB Procedure Vag Delivery Mother Details Mother Details: The patient is a 24 year-old, 4, now Para 3, admitted on 09/03/24 at 41.1 weeks gestation. : 4 Para: 3 Weeks Gestation: 41.1 Admission Date: 09/03/24 Additional Details Amniotic Membrane Status: SROM Amniotic Membrane Rupture Date: 09/03/24 Amniotic Membrane Rupture Time: 17:58 Amniotic Membrane Fluid Description: Clear Analgesia/Anesthesia Type: None Waterbirth: Yes Pitcoin: No Intrapartal Events: Precipitous Labor <3 Hrs Labor Onset: 15:48 Complete: 18:20 Pushin:20 Heart: heart tones during second stage were intermittently auscultated with reassuring heart tones. Delivery Details Delivery Date: 09/03/24 Delivery Time: 18:25 Route of delivery: Infant Gender: Male Infant Viability: Alive; Heart Rate Present Position at Delivery: OA Delivery Details: Patient was admitted for spontaneous onset of labor and progressed normally. SROM noted at 1758 with clear fluid. Patient was complete at 1825 and pushing at 1842. of a viable male at 1825 in kneeling position in the tub. Vertex delivered OA. No nuchal cord or shoulder. Body delivered easily and without incident. Infant passed to mothers abdomen with a vigorous cry. Cord was clamped and cut at > 5 minutes. APGARS were 8 at one minute and 8 at five minutes respectively. Mouth was bulb suctioned. Intact placenta with a 3 vessel cord delivered spontaneously at 1842. Fundus firm. Perineal abrasion, no repair. QBL 25 cc + EBL 350 from tub. Mother and baby stable; mother plans to breastfeed. Infant weight pending. 1 Minute Interval Total Score: 8 5 Minute Interval Total Score: 8 Additional Details Shoulder Dystocia: No Placenta Delivery Time: 18:42 Placental Delivery Description: Spontaneous Procedure Done: Global Blood Loss: 375 Laceration: Superficial Blood Loss Measurement Type: QBL Sponge/Need Count Correct: Yes Cord Vessel Description: 3 Vessels Event Summary Status: Mother and infant were stable after delivery. Disposition: floor
[2024-09-03] MEDS: ACETAMINOPHEN 500 MG TABLET 1000 MG PO (21:54)
[2024-09-04] MEDS: IBUPROFEN 600 MG TABLET PO ×3 (01:05→16:55)
[2024-09-04 01:08] VITALS: BP 122/73; PULSE 78; RESP 16; O2SAT 98
[2024-09-04 04:12] VITALS: BP 114/71; PULSE 71; RESP 16; TEMP 36.6; O2SAT 97
[2024-09-04] MEDS: ACETAMINOPHEN 500 MG TABLET 1000 MG PO ×2 (04:14→11:22)
[2024-09-04] MEDS: DOCUSATE SODIUM 100 MG CAPSULE PO (07:48)
[2024-09-04 08:17] VITALS: BP 117/76; PULSE 71; RESP 16; TEMP 36.8; O2SAT 95
[2024-09-04 11:20] VITALS: BP 106/69; PULSE 87; RESP 16; TEMP 36.8; O2SAT 97
--- NOTE | 2024-09-04 15:18 | P.DS_ITS ---
DS: Providers Provider Date Seen: 09/04/24 Date of admission: 09/03/24 17:00 Primary care physician: Maribel Lucio CNM Admitting Clinician: Roel CACERES [employer] Attending Physician on discharge: Maribel Lucio CNM Date of Discharge: 09/04/24 DS: Diagnosis Discharge Diagnosis (1) care and examination of lactating mother: Status: Acute (2) Normal spontaneous vaginal delivery: Status: Acute Exam Narrative: Exam Narrative: GENERAL APPEARANCE:? normal affect, alert, no distress MOOD:? appropriate CHEST:? clear to auscultation HEART:? regular rate and rhythm ABDOMEN:? soft, non-tender the uterine fundus is 2 fingers below Umbilicus, Midline and is appropriate for the stage of recovery. PERINEUM:? deferred EXTREMITIES:? normal and no edema Const: Vital Signs, click to edit/add: Vital Signs - 24 hr 09/03/24 15:45 09/03/24 16:04 09/03/24 16:55 Temperature Pulse Rate 95 85 110 H Pulse Rate [Pulse Oximeter] Respiratory Rate Blood Pressure 141/88 H 130/81 Blood Pressure [Ri ght Arm] Pulse Oximetry 100 Oxygen Delivery Me thod 09/03/24 17:04 09/03/24 17:30 09/03/24 18:49 Temperature 98.8 F Pulse Rate 80 82 Pulse Rate [Pulse Oximeter] Respiratory Rate 16 18 Blood Pressure 122/82 Blood Pressure [Ri ght Arm] Pulse Oximetry Oxygen Delivery Me thod 09/03/24 18:49 09/03/24 19:04 09/03/24 19:04 Temperature 98.3 F Pulse Rate 86 Pulse Rate [Pulse Oximeter] Respiratory Rate 16 16 Blood Pressure 126/78 Blood Pressure [Ri ght Arm] Pulse Oximetry Oxygen Delivery Me thod 09/03/24 19:19 09/03/24 19:19 09/03/24 19:34 Temperature Pulse Rate 90 96 Pulse Rate [Pulse Oximeter] Respiratory Rate 16 Blood Pressure 121/69 120/64 Blood Pressure [Ri ght Arm] Pulse Oximetry Oxygen Delivery Me thod 09/03/24 19:38 09/03/24 19:49 09/03/24 20:04 Temperature 98.7 F Pulse Rate 88 76 Pulse Rate [Pulse Oximeter] Respiratory Rate Blood Pressure 118/65 130/74 Blood Pressure [Ri ght Arm] Pulse Oximetry Oxygen Delivery Me thod 09/03/24 20:19 09/03/24 20:34 09/03/24 20:35 Temperature 98.8 F Pulse Rate 79 93 Pulse Rate [Pulse Oximeter] Respiratory Rate Blood Pressure 122/62 129/63 Blood Pressure [Ri ght Arm] Pulse Oximetry Oxygen Delivery Me thod 09/04/24 01:08 09/04/24 04:12 09/04/24 08:17 Temperature 97.9 F 98.3 F Pulse Rate Pulse Rate [Pulse Oximeter] 78 71 71 Respiratory Rate 16 16 16 Blood Pressure Blood Pressure [Ri ght Arm] 122/73 114/71 117/76 Pulse Oximetry 98 97 95 Oxygen Delivery Me thod Room Air Room Air Room Air 09/04/24 11:20 Temperature 98.3 F Pulse Rate Pulse Rate [Pulse Oximeter] 87 Respiratory Rate 16 Blood Pressure Blood Pressure [Ri ght Arm] 106/69 Pulse Oximetry 97 Oxygen Delivery Me thod Room Air OB - DS: Summary Hospital Course Hospital Course: Suzie is a 24 y.o. G 4 now P 3013 who was admitted to [facility] for active labor.? She had a NVD that was uncomplicated. The patient feels well.? The pain is well controlled with current medications.? She has no new complaints.? She is breast feeding and reports things are going well. the patient has done well.? Vitals have been stable.? She has remained afebrile.? Has a good ap petite, is tolerating a general diet.? She is voiding without difficulty.? She is not yet passing gas and has not had a bowel movement, but with such a good appetite, it is likely not a concern. She will start colace twice daily right away at home to hopefully prevent constipation from setting in.? She is ambulating and denies any dizziness.? Has small amount of rubra lochia. Problems: none, baby will have planned follow up scheduled prior to departure.? ?? plan:? Discharge home with baby.? Follow up in 2 weeks and 6 weeks.? , may see if needed? Hgb 11.1. ? ? Labs WNL or stable with trending? ? ? Peripartum Data Infant delivery method: Vaginal Laceration description: Superficial (not repaired) Episiotomy description: None complications: none [place] Infant Gender: Male Discharge Plan: Home Status at Discharge Overall status at discharge: patient is progressing back to baseline Time Spent with Patient Time attestation: Total time spent providing and/or coordinating discharge services: Time spent: Less than 30 minutes Discharge Plan Discharge Disposition: Home, Self-Care Date of Admission: 09/03/24 17:00 Primary Care Provider: Maribel Lucio Condition: Stable Anticipated Discharge Date/Time: 09/04/24 16:25 Discharge Medications: Continued DHA 200 mg capsule 200 mg PO DAILY magnesium 250 mg tablet 250 mg PO QDAY Discharge Orders: Discharge Order (Routine); Ordered 09/04/24 Ordered By: Coco Collins Patient Education: OB Vaginal/Breast Feeding, OB Over the Counter Medication Information Additional Instructions: Discharge instructions were reviewed with the patient including signs and symptoms of infection and home going medications Nothing vaginally for 6 weeks: no tampons or intercourse Do not drive while taking narcotic pain medication(s) Off Work or School for 6 weeks Symptoms to report to doctor: * Bleeding that saturates more than one pad per hour * Passing clots larger than the size of a golf ball * Pain not relieved by prescribed medication * Fever above 100.4 degrees Fahrenheit * A foul vaginal odor * Difficulty in emotions, mood, and functions * Thoughts of hurting yourself and/or * Painful, reddened area in your breast * Any drainage, redness, or tenderness in your IV/epidural site * Severe headache that doesn't improve after taking medications * Changes in vision, including temporary loss of vision, blurred vision, and/or light sensitivity * Upper abdominal pain (usually under ribs on the right side) * Decrease in urination or painful, frequent urinating * Chest pain * Shortness of breath * Tenderness or pain with redness and/swelling in the calf(s) of your leg 2-week visit: discuss infant feeding concerns, review control options and screen for anxiety/depression. 6-week visit for an annual exam. consultation services are available to all mothers and babies for the first year after delivery.? To make an appointment, please call [phone]. Activity Level: Activity as Tolerated and No strenuous activity Discharge Diet: Regular Follow Up Appointments: [facility] [Provider Group] Forms: MyHealth Info Instructions
[2024-09-04 16:58] VITALS: BP 115/76; PULSE 90; RESP 16; TEMP 36.6; O2SAT 97
== END 2024-09-04 20:10 | disposition home or self-care (01) | DRG 560 ==
LOC: OB OUT 17:20 → OB 17:20
PROVIDERS: Admitting Provider Advanced Practice Midwife; PCP Advanced Practice Midwife; Visit Provider Advanced Practice Midwife
DX: O48.0 Post-term pregnancy (principal); Z3A.41 41 weeks gestation of pregnancy; Z37.0 Single live birth; O09.30 Supervision of pregnancy with insufficient antenatal care, unspecified trimester; O35.09X0 Maternal care for (suspected) other central nervous system malformation or damage in fetus, not applicable or unspecified
CPT/HCPCS: 86592; A9270